=== PATIENT | female | born 1995 | race Caucasian/White ===

== ENCOUNTER → 2016-10-17 | Outpatient (REF) | payer OTHER ==
[~2016-10-17] MED LIST: ACET-654 PO; ACET50TA PO; CELE10TA PO; IBUP-1114 PO; ORTHTAB6 PO; PRENTAB9 PO
[2016-10-17 13:42] LABS: MEAN CORPUSCULAR HEMOGLOBIN 30.3 pg (27.0-33.0); MEAN CORPUSCULAR HGB CONC 33.8 g/dl (32.0-36.5); MEAN CORPUSCULAR VOLUME 89.7 fl (80.0-96.0); RED CELL DISTRIBUTION WIDTH 13.7 % (11.5-14.5); WHITE BLOOD COUNT 8.3 K/mm3 (4.0-10.0)
== END ==
LOC: M SFHCPLAZ 10:59
DX: F32.9 Major depressive disorder, single episode, unspecified (principal)

== ENCOUNTER → 2017-02-08 | Outpatient (REF) | payer OTHER, MEDICAID | LOC: M LAB REF 20:04 | PROVIDERS: ATTEND Physician Assistant | DX: L03.032 Cellulitis of left toe (principal) ==

== ENCOUNTER → 2017-12-29 | Outpatient (CLI) | payer BC, OTHER, MEDICAID ==
[2017-12-29 12:42] LABS: BASO % 0.2 % (0.0-1.0); EOS # 0.2 10^3/uL (0.0-0.50); EOS % 1.8 % (0.0-3.0); HEMOGLOBIN 12.9 g/dl (12.0-15.5); IMMATURE GRANULOCYTE % 0.4 % (0-3.0); LYMPH # 2.2 10^3/uL (1.5-6.5); LYMPH % 23.3 % (24.0-44.0); MEAN CORPUSCULAR HGB CONC 33.9 g/dl (32.0-36.5); MEAN CORPUSCULAR VOLUME 88.4 fl (80.0-96.0); MONO # 0.4 10^3/uL (0.0-0.8); MONO % 4.7 % (0.0-5.0); NEUTROPHILS # 6.5 10^3/uL (1.8-7.7); NEUTROPHILS % 69.6 % (36.0-66.0); PLATELET COUNT, AUTOMATED 187 10^3/uL (150-450); RED CELL DISTRIBUTION WIDTH 13.2 % (11.5-14.5); WHITE BLOOD COUNT 9.3 10^3/uL (4.0-10.0)
[2017-12-29 13:24] LABS: ESTIMATED AVERAGE GLUCOSE 80 MG/DL (60-110); HEMOGLOBIN A1c 4.4 %
[2017-12-29 13:42] LABS: GLUCOSE CHALLENGE TEST 1 HOUR 109 MG/DL (LESS THAN 140)
[2017-12-29 13:57] LABS: RUBELLA IgG QUALITATIVE IMMUNE (IMMUNE)
[2017-12-29 14:00] LABS: HBsAg Prenatal NEGATIVE (NEGATIVE)
[2017-12-29 14:27] LABS: HEPATITIS C VIRUS ABY INDEX < 0.0 INDEX (<0.8)
[2017-12-29 14:28] LABS: HIV 1&2 SCREEN CENTAUR NEGATIVE (NEGATIVE)
[2017-12-29 14:54] LABS: CHLAMYDIA DNA AMPLIFICATION NEGATIVE (NEGATIVE); GC DNA AMPLIFICATION NEGATIVE (NEGATIVE)
== END ==
LOC: M LAB 11:04
DX: Z34.91 Encounter for supervision of normal pregnancy, unspecified, first trimester (principal); Z3A.08 8 weeks gestation of pregnancy

== ENCOUNTER → 2018-03-09 | Outpatient (CLI) | payer BC, OTHER, MEDICAID | LOC: M RAD 11:16 | DX: Z34.82 Encounter for supervision of other normal pregnancy, second trimester (principal); Z36.89 Encounter for other specified antenatal screening; Z3A.19 19 weeks gestation of pregnancy | CPT/HCPCS: 76811 ==

== ENCOUNTER → 2018-04-04 | Outpatient (CLI) | payer BC, OTHER, MEDICAID | LOC: M RAD 14:24 | DX: Z34.82 Encounter for supervision of other normal pregnancy, second trimester (principal) | CPT/HCPCS: 76816 ==

== ENCOUNTER → 2018-05-16 | Outpatient (CLI) | payer BC, OTHER, MEDICAID ==
[2018-05-16 13:58] LABS: BASO % 0.2 % (0.0-1.0); EOS # 0.1 10^3/uL (0.0-0.50); EOS % 1.2 % (0.0-3.0); HEMATOCRIT 33.7 % (36.0-47.0); HEMOGLOBIN 11.5 g/dl (12.0-15.5); IMMATURE GRANULOCYTE % 0.7 % (0-3.0); LYMPH # 1.4 10^3/uL (1.5-6.5); LYMPH % 12.6 % (24.0-44.0); MEAN CORPUSCULAR HEMOGLOBIN 30.7 pg (27.0-33.0); MEAN CORPUSCULAR HGB CONC 34.1 g/dl (32.0-36.5); MEAN CORPUSCULAR VOLUME 90.1 fl (80.0-96.0); MONO # 0.5 10^3/uL (0.0-0.8); MONO % 4.8 % (0.0-5.0); NEUTROPHILS # 8.7 10^3/uL (1.8-7.7); NEUTROPHILS % 80.5 % (36.0-66.0); PLATELET COUNT, AUTOMATED 162 10^3/uL (150-450); RED BLOOD COUNT 3.74 10^6/uL (4.00-5.40); WHITE BLOOD COUNT 10.8 10^3/uL (4.0-10.0)
[2018-05-16 14:18] LABS: GLUCOSE CHALLENGE TEST 1 HOUR 148 MG/DL (LESS THAN 140)
== END ==
LOC: M LAB 12:08
DX: Z34.82 Encounter for supervision of other normal pregnancy, second trimester (principal); Z36.89 Encounter for other specified antenatal screening
CPT/HCPCS: 82950

== ENCOUNTER → 2018-05-21 | Outpatient (CLI) | payer BC, OTHER, MEDICAID ==
[2018-05-21 09:25] LABS: GLUCOSE, FASTING 78 MG/DL (LESS THAN 95)
[2018-05-21 10:21] LABS: 1 HR GLUCOSE 150 MG/DL (LESS THAN 180)
[2018-05-21 11:17] LABS: 2 HR GLUCOSE 145 MG/DL (LESS THAN 155)
[2018-05-21 12:22] LABS: 3 HR GLUCOSE 142 MG/DL (LESS THAN 140)
== END ==
LOC: M LAB 08:06
DX: Z34.82 Encounter for supervision of other normal pregnancy, second trimester (principal); Z3A.00 Weeks of gestation of pregnancy not specified
CPT/HCPCS: 82951

== ENCOUNTER → 2018-07-13 | Outpatient (REF) | payer OTHER, MEDICAID | LOC: M LAB REF 17:29 | DX: Z36.89 Encounter for other specified antenatal screening (principal) | CPT/HCPCS: 87081 ==

== ENCOUNTER 2018-08-07 02:40 | Inpatient (IN) | payer MEDICAID, BC, OTHER ==
[2018-08-07] MEDS: LR 1,000 ML IV (03:41)
[2018-08-07] MEDS: OXYTOCIN DRIP 30 UNITS in APPROPRIATE DILUENT 1 EA IV ×2 (03:43→07:39)
[2018-08-07 03:44] LABS: HEMATOCRIT 36.1 % (36.0-47.0); HEMOGLOBIN 11.7 g/dl (12.0-15.5); MEAN CORPUSCULAR HEMOGLOBIN 28.7 pg (27.0-33.0); MEAN CORPUSCULAR HGB CONC 32.4 g/dl (32.0-36.5); MEAN CORPUSCULAR VOLUME 88.5 fl (80.0-96.0); PLATELET COUNT, AUTOMATED 170 10^3/uL (150-450); RED BLOOD COUNT 4.08 10^6/uL (4.00-5.40); RED CELL DISTRIBUTION WIDTH 14.3 % (11.5-14.5); WHITE BLOOD COUNT 10.2 10^3/uL (4.0-10.0)
[2018-08-07] MEDS ORDERED: fentaNYL 100 MCG/2 ML INJECTION (J3010) As Ordered (04:15)
[2018-08-07] MEDS ORDERED: FENTANYL 2MCG/ML ROPIVACAINE 0.2% IN 0.9% NACL 100ML IVBAG As Ordered (04:17)
[2018-08-07] MEDS ORDERED: EPIDURAL COMMENT XX (05:00)
[2018-08-07] MEDS ORDERED: NALOXONE INJ 0.4 MG/1 ML VIAL (J2310) IV (05:00)
[2018-08-07] MEDS ORDERED: FENTANYL/ROPIVACAINE/NACL BAG 100 ML EPIDURAL (05:00)
[2018-08-07] MEDS ORDERED: LACTATED RINGER'S 1000 ML IV (05:00)
[2018-08-07] MEDS ORDERED: diphenhydrAMINE INJ 50MG/ML VIAL (J1200) IV (05:00)
[2018-08-07] MEDS ORDERED: EPIDURAL/PCA KEYS XX (05:00)
[2018-08-07] MEDS ORDERED: ONDANSETRON 4MG/2ML VIAL (J2405) IV (05:00)
[2018-08-07] MEDS ORDERED: ePHEDrine SULFATE 25 MG/5 ML(5MG/ML) SYRINGE IV (05:00)
[2018-08-07] MEDS ORDERED: REFRIGERATOR IV KEYS XX (05:00)
[2018-08-07] MEDS ORDERED: METHYLERGONOVINE MALEATE 0.2 MG TAB PO (08:00)
[2018-08-07] MEDS ORDERED: DOCUSATE SODIUM 100 MG CAP PO (08:00)
[2018-08-07] MEDS: PRENATAL VITAMINS CHEWABLE TABLET PO (08:46)
[2018-08-07] MEDS: ACETAMINOPHEN 500 MG TAB PO (08:47)
[2018-08-07] MEDS: DIBUCAINE 1% OINTMENT 30GM TOP (10:35)
[2018-08-07] MEDS: MEASLES,MUMPS,RUBELLA VACCINE INJ (MMR-II) (90707) SC (11:41)
[2018-08-07] MEDS: RHOGAM 300 MCG (1500 IU) INJ (J2790) IM (11:41)
[2018-08-07] MEDS: IBUPROFEN 800 MG TAB PO (19:57)
[2018-08-08] MEDS: PRENATAL VITAMINS CHEWABLE TABLET PO (08:10)
== END 2018-08-08 11:10 | disposition home or self-care (01) | DRG 560 ==
LOC: M LDO 02:40 → M LDI 03:21 → M OBS 10:10
PROVIDERS: Advanced Practice Midwife
PROC: 10E0XZZ Delivery of Products of Conception, External Approach (ICD-10-PCS; principal; 2018-08-07)
DX: O48.0 Post-term pregnancy (principal); O69.82X0 Labor and delivery complicated by other cord entanglement, without compression, not applicable or unspecified; Z37.0 Single live birth; Z3A.40 40 weeks gestation of pregnancy

== ENCOUNTER → 2018-11-06 | Outpatient (REF) | payer BC ==
[~2018-11-06] MED LIST changes: -ACET50TA PO; +MAPA500T2 PO; +ZYRT10CA PO
[2018-11-06 18:58] LABS: BASO % 0.2 % (0.0-1.0); EOS # 0.2 10^3/uL (0.0-0.50); EOS % 1.7 % (0.0-3.0); HEMATOCRIT 42.5 % (36.0-47.0); HEMOGLOBIN 14.1 g/dl (12.0-15.5); LYMPH # 1.1 10^3/uL (1.5-6.5); LYMPH % 9.1 % (24.0-44.0); MEAN CORPUSCULAR HEMOGLOBIN 28.9 pg (27.0-33.0); MEAN CORPUSCULAR HGB CONC 33.2 g/dl (32.0-36.5); MEAN CORPUSCULAR VOLUME 87.1 fl (80.0-96.0); MONO # 0.4 10^3/uL (0.0-0.8); MONO % 3.6 % (0.0-5.0); NEUTROPHILS # 9.9 10^3/uL (1.8-7.7); NEUTROPHILS % 85.1 % (36.0-66.0); PLATELET COUNT, AUTOMATED 238 10^3/uL (150-450); RED BLOOD COUNT 4.88 10^6/uL (4.00-5.40); WHITE BLOOD COUNT 11.6 10^3/uL (4.0-10.0)
[2018-11-06 19:17] LABS: ALBUMIN 3.8 GM/DL (3.2-5.2); ALT/SGPT 16 U/L (12-78); AMYLASE 49 U/L (25-115); BILIRUBIN,TOTAL 0.4 MG/DL (0.2-1.0); BLOOD UREA NITROGEN 11 MG/DL (7-18); CALCIUM LEVEL 8.4 MG/DL (8.5-10.1); CARBON DIOXIDE LEVEL 20 MEQ/L (21-32); CHLORIDE LEVEL 108 MEQ/L (98-107); CREATININE FOR GFR 0.64 MG/DL (0.55-1.30); GLOMERULAR FILTRATION RATE > 60.0 (>60); GLUCOSE, FASTING 85 MG/DL (70-100); LIPASE 155 U/L (73-393); POTASSIUM SERUM 3.7 MEQ/L (3.5-5.1); SODIUM LEVEL 140 MEQ/L (136-145); TOTAL PROTEIN 7.5 GM/DL (6.4-8.2)
== END ==
LOC: M SFHCADAM 16:13
PROVIDERS: ATTEND Physician Assistant
DX: R10.11 Right upper quadrant pain (principal)

== ENCOUNTER → 2018-11-07 | Outpatient (CLI) | payer BC, OTHER ==
--- NOTE | 2018-11-07 10:45 | REP ---
Right upper quadrant sonography: History: Abdomen pain. Comparison study: Comparison CT study is from May 11, 2013. Findings: Scanning through the right upper quadrant of the abdomen demonstrates a normal sized, thin-walled gallbladder without evidence of stone or polyp. Common bile duct is normal measuring 0.5 cm in greatest diameter. No focal liver lesion is seen. Liver size is normal. No pancreatic abnormality is observed. No right renal abnormality is seen. There is no evidence of ascites. The right kidney measures 11.4 x 5.5 x 3.7 cm. Impression: Negative right upper quadrant sonography. Electronically Signed by Yosi Nino MD 11/07/2018 10:36 A
== END ==
LOC: M RAD 09:28
PROVIDERS: ATTEND Physician Assistant
DX: R10.11 Right upper quadrant pain (principal)

== ENCOUNTER → 2019-02-28 | Outpatient (REF) | payer OTHER | LOC: M LAB REF 12:08 | PROVIDERS: ATTEND Physician Assistant | DX: N39.0 Urinary tract infection, site not specified (principal) ==

== ENCOUNTER → 2019-10-14 | Outpatient (REF) | payer OTHER | LOC: M SFHCWAGY 11:25 | PROVIDERS: ATTEND Advanced Practice Midwife | DX: Z12.4 Encounter for screening for malignant neoplasm of cervix (principal) ==

== ENCOUNTER → 2020-05-29 | Outpatient (CLI) | payer BC | LOC: M WHC 16:51 | PROVIDERS: ATTEND Advanced Practice Midwife | DX: Z53.9 Procedure and treatment not carried out, unspecified reason (principal); N63.0 Unspecified lump in unspecified breast ==

== ENCOUNTER → 2020-06-03 | Outpatient (CLI) | payer BC ==
--- NOTE | 2020-06-03 16:10 | REP ---
INDICATION: RIGHT BREAST LUMP N63.0; N63.0 RT BREAST LUMP; RIGHT BREAST LUMP. Family history breast cancer in maternal cousin at age 39. COMPARISON: None TECHNIQUE: Right breast mammography was performed in the MLO and CC projections with tomosynthesis. Focused right breast ultrasound is performed in the region of 6-7 o'clock at the site of a reported palpable abnormality. FINDINGS: Zqxf-kd-kzrwsnpe diffuse fibroglandular tissue is present. There is no evidence of mass or architectural distortion. No clustered microcalcifications are seen. Real-time sonographic evaluation of the right breast in the region of 6-7 o'clock demonstrates no cystic or solid nodule. The Volpara volumetric breast density pattern is B. IMPRESSION: BIRADS/ACR category 1, negative. No mass or clustered microcalcifications on right breast mammography. No mammographic or sonographic evidence of nodule at the site of the reported palpable abnormality right breast at approximately 6-7 o'clock. A negative mammogram and ultrasound should not deter biopsy if there is a clinically suspicious palpable mass present. Clinical correlation and follow-up is recommended. This patient's Tyrer-Cuzick lifetime breast cancer risk assessment score is 11.0%. This mammogram was interpreted with the aid of an FDA-approved computer-aided detection system. The patient states she had a clinical breast exam in May 2020. The patient letter being requested is M 2. RECOMMENDATION: Clinical correlation and follow-up recommended <Electronically signed by Joseph Hendrickson > 06/03/20 [id number]
== END ==
LOC: M WHC 14:14
PROVIDERS: ATTEND Advanced Practice Midwife
DX: N63.13 Unspecified lump in the right breast, lower outer quadrant (principal); Z80.3 Family history of malignant neoplasm of breast
CPT/HCPCS: 76642; 77065; G0279

== ENCOUNTER → 2020-09-15 | Outpatient (CLI) | payer BC, OTHER ==
[~2020-09-15] MED LIST changes: +PROHANCE 279.3MG/ML 15ML VIAL As Ordered ONE; +PROHANCE 279.3MG/ML 5ML VIAL As Ordered ONE
--- NOTE | 2020-09-15 14:55 | REP ---
INDICATION: LUMP RIGHT BREAST. COMPARISON: Comparison diagnostic mammography and right breast sonography 03 June 2020. TECHNIQUE: [facility] MRI imaging was performed with a dedicated breast coil. Axial, coronal, and sagittal T1 and T2 weighted scans were obtained with and without fat saturation in the usual fashion. The study includes dynamically acquired post gadolinium-enhanced imaging with image subtraction. Maximum intensity projection and multi planar reformation imaging is included as well. This study is interpreted with the aid of [employer], an FDA approved computer aided detection (CAD) software program, on a dedicated breast MRI workstation. The gadolinium enhancement dose is 19 mL of intravenous ProHance. FINDINGS: There is a jdys-il-dsldysmi as symmetric pattern of fibroglandular tissue bilaterally. This is symmetric. There is no evidence of axillary lymphadenopathy on either side. No breast cystic changes seen. Pre and postcontrast high-resolution T1 and T2 weighted scans show no suspicious morphologic abnormality in either breast. There is a mild pattern of background parenchymal enhancement. Dynamically acquired sequential postcontrast images show no suspicious focus of enhancement and washout in either breast to suggest malignancy. Subtraction images show no additional abnormality. IMPRESSION: BI-RADS category 1-findings. Clinical follow-up is advised. <Electronically signed by Gibran Nino > 09/15/20 [id number]
== END ==
LOC: M RAD 10:49
PROVIDERS: ATTEND Surgery
DX: N63.10 Unspecified lump in the right breast, unspecified quadrant (principal)

== ENCOUNTER → 2020-11-25 | Outpatient (REF) | payer BC ==
[~2020-11-25] MED LIST changes: -PROHANCE 279.3MG/ML 15ML VIAL As Ordered ONE; -PROHANCE 279.3MG/ML 5ML VIAL As Ordered ONE
[2020-11-25 12:43] LABS: BASO % 0.3 % (0.0-1.0); EOS # 0.3 10^3/uL (0.0-0.5); EOS % 3.8 % (0.0-3.0); HEMATOCRIT 40.6 % (36.0-47.0); HEMOGLOBIN 13.2 g/dl (12.0-15.5); LYMPH # 1.7 10^3/uL (1.5-5.0); LYMPH % 22.8 % (24.0-44.0); MEAN CORPUSCULAR HEMOGLOBIN 29.5 pg (27.0-33.0); MEAN CORPUSCULAR HGB CONC 32.5 g/dl (32.0-36.5); MEAN CORPUSCULAR VOLUME 90.6 fl (80.0-96.0); MONO # 0.3 10^3/uL (0.0-0.8); MONO % 4.2 % (2.0-8.0); NEUTROPHILS # 5.1 10^3/uL (1.5-8.5); NEUTROPHILS % 68.6 % (36.0-66.0); PLATELET COUNT, AUTOMATED 211 10^3/uL (150-450); RED BLOOD COUNT 4.48 10^6/uL (4.00-5.40); WHITE BLOOD COUNT 7.4 10^3/uL (4.0-10.0)
[2020-11-25 13:06] LABS: ERYTHROCYTE SEDIMENTATION RATE 22 mm/hr (0-20)
[2020-11-25 20:27] LABS: ALBUMIN 3.5 GM/DL (3.2-5.2); ALT/SGPT 19 U/L (12-78); BILIRUBIN,TOTAL 0.2 MG/DL (0.2-1.0); BLOOD UREA NITROGEN 12 MG/DL (7-18); C REACTIVE PROTEIN QUANTITATIV 1.97 MG/DL (0.00-0.30); CALCIUM LEVEL 9.5 MG/DL (8.5-10.1); CARBON DIOXIDE LEVEL 24 MEQ/L (21-32); CHLORIDE LEVEL 105 MEQ/L (98-107); CREATININE FOR GFR 0.68 MG/DL (0.55-1.30); GLOMERULAR FILTRATION RATE > 60.0 (>60); GLUCOSE, FASTING 152 MG/DL (70-100); POTASSIUM SERUM 4.2 MEQ/L (3.5-5.1); RHEUMATOID FACTOR QUANT < 10.0 IU/ML (<15.0); SODIUM LEVEL 137 MEQ/L (136-145); TOTAL PROTEIN 6.9 GM/DL (6.4-8.2)
[2020-11-26 13:06] LABS: ANTINUCLEAR ANTIBODIES DIRECT Negative (Negative)
== END ==
LOC: M SFHCADAM 10:09
PROVIDERS: ATTEND Family Medicine
DX: Z00.00 Encounter for general adult medical examination without abnormal findings (principal); R21 Rash and other nonspecific skin eruption

== ENCOUNTER → 2020-12-09 | Outpatient (REF) | payer BC ==
[2020-12-09 14:16] LABS: HEMOGLOBIN A1c 4.8 %
== END ==
LOC: M SFHCADAM 09:07
PROVIDERS: ATTEND Family Medicine
DX: R73.9 Hyperglycemia, unspecified (principal)

== ENCOUNTER → 2020-12-09 | Outpatient (CLI) | payer BC ==
--- NOTE | 2020-12-09 09:58 | REP ---
INDICATION: CHEST PRESSURE. COMPARISON: 01/11/2009 TECHNIQUE: PA and lateral FINDINGS: The superior mediastinal structures are midline. The cardiac silhouette is unremarkable in size, shape, and position. The diaphragmatic surfaces of the lungs are regular, and the costophrenic angles are clear. The pulmonary chew are clear. The imaged osseous structures are intact. IMPRESSION: There is no acute cardiopulmonary disease. <Electronically signed by Yobany Campo > 12/09/20 [id number]
== END ==
LOC: M ADAMS 09:15
PROVIDERS: ATTEND Family Medicine
DX: R07.89 Other chest pain (principal)

== ENCOUNTER → 2020-12-28 | Outpatient (REF) | payer BC | LOC: M SFHCWAGY 17:27 | PROVIDERS: ATTEND Advanced Practice Midwife | DX: Z12.4 Encounter for screening for malignant neoplasm of cervix (principal) ==

== ENCOUNTER → 2021-01-06 | Outpatient (CLI) | payer BC, OTHER ==
[~2021-01-06] MED LIST changes: +ORTH1TAB8 PO
[2021-01-06 08:45] VITALS: BP 112/76
--- NOTE | 2021-01-06 18:41 | REP ---
INDICATION: N63.10 LUMP OF RT BREAST,U/S GUIDED BIOPSY. COMPARISON: None. TECHNIQUE: Sonographic guidance. FINDINGS: Ultrasound guidance is provided to Dr. Olosn performed a right breast needle biopsy with clip placement. IMPRESSION: Sonographic guidance. <Electronically signed by Gibran Nino > 01/06/21 [id number]
== END ==
LOC: M WHCPRO 06:36
PROVIDERS: ATTEND Surgery
DX: N63.10 Unspecified lump in the right breast, unspecified quadrant (principal)

== ENCOUNTER 2021-08-08 12:34 | Emergency (ER) | payer BC, OTHER ==
[~2021-08-08] VITALS: Ht 160 cm; Wt 100.0 kg
[2021-08-08] MEDS ORDERED: ACET-683 PO (12:45)
[2021-08-08] MEDS ORDERED: ACETAMINOPHEN 325 MG TAB PO ONE (13:05)
[2021-08-08 13:44] LABS: HEMATOCRIT 38.4 % (36.0-47.0); HEMOGLOBIN 13.1 g/dl (12.0-15.5); LYMPH # 0.7 10^3/uL (1.5-5.0); LYMPH % 16.6 % (24.0-44.0); MEAN CORPUSCULAR HEMOGLOBIN 29.7 pg (27.0-33.0); MEAN CORPUSCULAR HGB CONC 34.1 g/dl (32.0-36.5); MEAN CORPUSCULAR VOLUME 87.1 fl (80.0-96.0); MONO # 0.1 10^3/uL (0.0-0.8); MONO % 3.3 % (2.0-8.0); NEUTROPHILS # 3.4 10^3/uL (1.5-8.5); NEUTROPHILS % 79.9 % (36.0-66.0); PLATELET COUNT, AUTOMATED 154 10^3/uL (150-450); RED BLOOD COUNT 4.41 10^6/uL (4.00-5.40); WHITE BLOOD COUNT 4.2 10^3/uL (4.0-10.0)
[2021-08-08 14:04] LABS: ABG BASE EXCESS -1.5 (-2.0-2.0); ABG HCO3 20.2 MEQ/L (22.0-26.0); ABG O2 SATURATION 93.6 % (95.0-99.0); ABG PARTIAL PRESSURE CO2 26.7 mmHg (35.0-45.0); ABG PARTIAL PRESSURE O2 60.3 mmHg (75.0-100.0); ABG STANDARD HCO3 23.1 MEQ/L (22.0-26.0); ABG pH (ARTERIAL) 7.497 UNITS (7.350-7.450)
[2021-08-08 14:09] LABS: ALBUMIN 3.5 GM/DL (3.2-5.2); ALT/SGPT 33 U/L (12-78); BILIRUBIN,TOTAL 0.5 MG/DL (0.2-1.0); BLOOD UREA NITROGEN 12 MG/DL (7-18); CALCIUM LEVEL 8.3 MG/DL (8.5-10.1); CARBON DIOXIDE LEVEL 24 MEQ/L (21-32); CHLORIDE LEVEL 105 MEQ/L (98-107); CREATININE FOR GFR 0.76 MG/DL (0.55-1.30); GLOMERULAR FILTRATION RATE > 60.0 (>60); GLUCOSE, FASTING 88 MG/DL (70-100); LDH LACTATE DEHYDROGENASE 234 U/L (84-246); POTASSIUM SERUM 3.6 MEQ/L (3.5-5.1); SODIUM LEVEL 137 MEQ/L (136-145); TOTAL PROTEIN 6.8 GM/DL (6.4-8.2)
[2021-08-08 14:11] LABS: CK-MB VALUE MASS < 1.0 NG/ML (<3.6); CPK CREATINE PHOSPHOKINASE 72 U/L (26-192); MB/CK RELATIVE INDEX 1.39 (< OR =4)
[2021-08-08 16:00] VITALS: BP 98/54
== END 2021-08-08 16:32 | disposition home or self-care (01) ==
LOC: M ED 12:34
DX: U07.1 COVID-19 (principal); J40 Bronchitis, not specified as acute or chronic; J45.909 Unspecified asthma, uncomplicated; J30.2 Other seasonal allergic rhinitis; Z79.3 Long term (current) use of hormonal contraceptives; Z79.899 Other long term (current) drug therapy

== ENCOUNTER 2021-08-09 10:25 | Outpatient (CLI) | payer BC, OTHER ==
[~2021-08-09] VITALS: Ht 160 cm; Wt 99.8 kg
[~2021-08-09 10:25] MED LIST changes: +ACET-683 PO; +BAMLANIVIMAB 700 MG, ETESEVIMAB 1,400 MG in NS 250 ML IV ONE
[2021-08-09] MEDS ORDERED: EPINEPHrine INJ 1 MG/ML 1ML AMP IM PRN (10:30)
[2021-08-09] MEDS ORDERED: methylPREDNISolone 125MG 2ML VIAL IV PRN (10:30)
[2021-08-09] MEDS ORDERED: ACETAMINOPHEN TAB 650MG DOSE (2X325MG) PO PRN (10:30)
[2021-08-09] MEDS ORDERED: ALBUTEROL SULFATE 2.5 MG/0.5 ML INH NEB SOLN INH PRN (10:30)
[2021-08-09] MEDS ORDERED: diphenhydrAMINE 50MG/ML VIAL (J1200) IV PRN (10:30)
[2021-08-09] MEDS ORDERED: ALBUTEROL 90 MCG/ACT 8GM HFA INHALER INH PRN (10:30)
[2021-08-09] MEDS ORDERED: NS 1,000 ML IV SCH (10:30)
[2021-08-09] MEDS ORDERED: CASIRIVIMAB/IMDEVIMAB 1,200 MG in NS 250 ML IV ONE (10:30)
[2021-08-09 10:59] VITALS: BP 123/58
[2021-08-09 11:29] VITALS: BP 110/55
[2021-08-09 11:59] VITALS: BP 102/50
[2021-08-09 13:04] VITALS: BP 110/54
== END 2021-08-09 12:59 | disposition home or self-care (01) ==
LOC: M OPCLI4PR 10:25
PROVIDERS: ATTEND Family Medicine
DX: U07.1 COVID-19 (principal)

== ENCOUNTER → 2022-02-04 | Outpatient (REF) | payer OTHER, BC ==
[~2022-02-04] MED LIST changes: -BAMLANIVIMAB 700 MG, ETESEVIMAB 1,400 MG in NS 250 ML IV ONE
== END ==
LOC: M SFHCWAGY 12:50
PROVIDERS: ATTEND Advanced Practice Midwife
DX: Z36.89 Encounter for other specified antenatal screening (principal); Z3A.00 Weeks of gestation of pregnancy not specified

== ENCOUNTER → 2022-04-06 | Outpatient (REF) | payer OTHER, BC ==
[2022-04-07 16:37] LABS: GC DNA AMPLIFICATION NEGATIVE (NEGATIVE)
== END ==
LOC: M SFHCWAGY 13:16
PROVIDERS: ATTEND Advanced Practice Midwife
DX: Z34.82 Encounter for supervision of other normal pregnancy, second trimester (principal); Z36.89 Encounter for other specified antenatal screening

== ENCOUNTER → 2022-04-12 | Outpatient (CLI) | payer BC, OTHER | LOC: M WHC 10:02 | PROVIDERS: ATTEND Obstetrics & Gynecology | DX: Z36.3 Encounter for antenatal screening for malformations (principal); Z3A.20 20 weeks gestation of pregnancy ==

== ENCOUNTER → 2022-05-25 | Outpatient (CLI) | payer BC, OTHER | LOC: M WHC 09:57 | PROVIDERS: ATTEND Obstetrics & Gynecology | DX: Z36.2 Encounter for other antenatal screening follow-up (principal); Z3A.27 27 weeks gestation of pregnancy ==

== ENCOUNTER → 2022-06-01 | Outpatient (CLI) | payer OTHER ==
[2022-06-01 15:00] LABS: HEMATOCRIT 33.3 % (36.0-47.0); HEMOGLOBIN 10.9 g/dl (12.0-15.5); MEAN CORPUSCULAR HGB CONC 32.7 g/dl (32.0-36.5); MEAN CORPUSCULAR VOLUME 94.6 fl (80.0-96.0); PLATELET COUNT, AUTOMATED 165 10^3/uL (150-450); RED BLOOD COUNT 3.52 10^6/uL (4.00-5.40); WHITE BLOOD COUNT 10.5 10^3/uL (4.0-10.0)
== END ==
LOC: M PLALAB 09:36
PROVIDERS: ATTEND Advanced Practice Midwife
DX: Z34.82 Encounter for supervision of other normal pregnancy, second trimester (principal)

== ENCOUNTER → 2022-06-01 | Outpatient (REF) | payer OTHER | LOC: M PLALAB 07:57 | PROVIDERS: ATTEND Advanced Practice Midwife | DX: Z34.82 Encounter for supervision of other normal pregnancy, second trimester (principal) ==

== ENCOUNTER → 2022-06-20 | Outpatient (CLI) | payer BC, OTHER | LOC: M WHC 09:52 | PROVIDERS: ATTEND Advanced Practice Midwife | DX: Z34.83 Encounter for supervision of other normal pregnancy, third trimester (principal); Z3A.30 30 weeks gestation of pregnancy ==

== ENCOUNTER → 2022-07-13 | Outpatient (REF) | payer BC, OTHER | LOC: M SFHCWAGY 17:05 | PROVIDERS: ATTEND Advanced Practice Midwife | DX: Z34.83 Encounter for supervision of other normal pregnancy, third trimester (principal) ==

== ENCOUNTER → 2022-08-05 | Outpatient (REF) | payer OTHER, BC | LOC: M SFHCWAGY 12:38 | PROVIDERS: ATTEND Obstetrics & Gynecology | DX: Z3A.36 36 weeks gestation of pregnancy (principal) ==

== ENCOUNTER → 2023-03-15 | Outpatient (REF) | payer OTHER ==
[~2023-03-15] MED LIST changes: +IBUP-1022 PO
== END ==
LOC: M PLALAB 15:49
PROVIDERS: ATTEND Advanced Practice Midwife
DX: Z12.4 Encounter for screening for malignant neoplasm of cervix (principal)

== ENCOUNTER → 2024-06-10 | Outpatient (CLI) | payer BC ==
[2024-06-10 10:39] LABS: HEMATOCRIT 41.3 % (36.0-47.0); HEMOGLOBIN 13.9 g/dl (12.0-15.5); MEAN CORPUSCULAR HEMOGLOBIN 30.1 pg (27.0-33.0); MEAN CORPUSCULAR HGB CONC 33.7 g/dl (32.0-36.5); MEAN CORPUSCULAR VOLUME 89.4 fl (80.0-96.0); PLATELET COUNT, AUTOMATED 233 10^3/uL (150-450); RED BLOOD COUNT 4.62 10^6/uL (4.00-5.40); WHITE BLOOD COUNT 10.1 10^3/uL (4.0-10.0)
[2024-06-10 10:53] LABS: HEMOGLOBIN A1c 4.9 % (4.0-6.0)
[2024-06-10 11:04] LABS: ALBUMIN 3.8 G/DL (3.2-5.2); ALKALINE PHOSPHATASE 98 U/L (35-104); ALT/SGPT 29 U/L (7.0-40); AST/SGOT 19 U/L (<34); BILIRUBIN,TOTAL 0.4 MG/DL (0.3-1.2); BLOOD UREA NITROGEN 11 MG/DL (9-23); CALCIUM LEVEL 9.1 MG/DL (8.5-10.1); CARBON DIOXIDE LEVEL 25 MMOL/L (20-31); CHLORIDE LEVEL 108 MMOL/L (98-107); CHOLESTEROL LEVEL 143 MG/DL (<200); CHOLESTEROL RISK RATIO 4.18 (<5); CREATININE FOR GFR 0.63 MG/DL (0.55-1.30); GLOMERULAR FILTRATION RATE > 60.0 (>60); GLUCOSE, FASTING 118 MG/DL (60-100); HDL CHOLESTEROL 34.2 MG/DL (>40); LDL CHOLESTEROL 61.6 MG/DL (<100); NON-HDL-C 108.8 MG/DL; POTASSIUM SERUM 4.4 MMOL/L (3.5-5.1); SODIUM LEVEL 140 MMOL/L (136-145); TOTAL PROTEIN 7.1 G/DL (5.7-8.2); TRIGLYCERIDES LEVEL 236 MG/DL (<150)
[2024-06-10 11:06] LABS: VITAMIN B12 LEVEL 934 PG/ML (211-911)
== END ==
LOC: M PLALAB 09:23
PROVIDERS: ATTEND Family Medicine
DX: R20.2 Paresthesia of skin (principal); R42 Dizziness and giddiness; R53.83 Other fatigue; R19.7 Diarrhea, unspecified; E66.9 Obesity, unspecified

== ENCOUNTER → 2024-07-17 | Outpatient (CLI) | payer BC | LOC: M WHC 10:28 | PROVIDERS: ATTEND Nurse Practitioner Family | DX: N63.21 Unspecified lump in the left breast, upper outer quadrant (principal); N63.10 Unspecified lump in the right breast, unspecified quadrant; N64.4 Mastodynia | CPT/HCPCS: 76642; 77066; G0279 ==

== ENCOUNTER → 2024-12-19 | Outpatient (CLI) | payer BC | LOC: M PLALAB 09:37 | PROVIDERS: ATTEND Family Medicine | DX: R42 Dizziness and giddiness (principal); R19.7 Diarrhea, unspecified ==